=== PATIENT | male | born 1950 | race Caucasian/White ===

== ENCOUNTER 2019-04-18 09:49 | Emergency (ER) | payer OTHER, MEDICARE ==
[~2019-04-18] VITALS: Ht 188 cm; Wt 99.8 kg
[2019-04-18 09:55] VITALS: BP 218/122
[2019-04-18] MEDS ORDERED: BLOOD PRESSURE (09:59)
[2019-04-18] MEDS ORDERED: TRIMETHOPRIM /P10 M1 OPHTHALMIC (10:44)
== END 2019-04-18 10:51 | disposition home or self-care (01) ==
LOC: M.ERS 09:49
DX: S05.01XA Injury of conjunctiva and corneal abrasion without foreign body, right eye, initial encounter (principal); I10 Essential (primary) hypertension; X58.XXXA Exposure to other specified factors, initial encounter; Y93.89 Activity, other specified; Y92.812 Truck as the place of occurrence of the external cause; Y99.8 Other external cause status